=== PATIENT | male | born 1965 | race Caucasian/White ===

== ENCOUNTER 2022-08-08 14:30 | Emergency (ER) | payer MEDICAID ==
[~2022-08-08] VITALS: Ht 170.2 cm; Wt 77.1 kg
[2022-08-08 15:00] VITALS: BP 143/76
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
[2022-08-08] MEDS ORDERED: IBUPROFEN 600 MG TAB PO ONE (16:00)
[2022-08-08] MEDS ORDERED: BACITRACIN OINT 500 UNITS/GM PKT TP ONE ×2 (16:00→16:05)
[2022-08-08] MEDS ORDERED: IBUP-2213 PO (16:08)
[2022-08-08] MEDS ORDERED: ACET-10509 PO (16:08)
[2022-08-08 16:33] VITALS: BP 143/76
--- NOTE | 2022-08-08 16:33 | NUR ---
Patient discharged with v/s stable. Written and verbal after care instructions given and explained. Patient alert, oriented and verbalized understanding of instructions. Ambulatory with CRUTCHES. All questions addressed prior to discharge. ID band removed. Patient advised to follow up with PMD. Rx of IBUPROFEN, ACETAMINOPHEN given. Patient educated on indication of medication including possible reaction and side effects. Opportunity to ask questions provided and answered.
--- NOTE | 2022-08-08 16:34 | NUR ---
The patient's care was reviewed and supervised by Kayy Diaz, RN, RN.
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
== END 2022-08-08 16:33 | disposition home or self-care (01) ==
LOC: MED 14:30
DX: S92.425A Nondisplaced fracture of distal phalanx of left great toe, initial encounter for closed fracture (principal); Z79.899 Other long term (current) drug therapy; Z79.1 Long term (current) use of non-steroidal anti-inflammatories (NSAID); W20.8XXA Other cause of strike by thrown, projected or falling object, initial encounter; Y93.89 Activity, other specified; Y92.89 Other specified places as the place of occurrence of the external cause; Y99.8 Other external cause status
CPT/HCPCS: 73660; 99283

== ENCOUNTER 2023-10-10 18:08 | Emergency (ER) | payer SELFPAY ==
[~2023-10-10] VITALS: Ht 170.2 cm; Wt 80.5 kg
[~2023-10-10 18:08] MED LIST: ACET-10509 PO; IBUP-2213 PO
[2023-10-10 18:17] VITALS: BP 117/47; PULSE 77; RESP 16; TEMP 97.7; O2SAT 99
[2023-10-10] MEDS: KETOROLAC 30 MG/ML VIAL IM ONE (19:47)
[2023-10-10] MEDS: predniSONE 20 MG TAB PO ONE (19:49)
[2023-10-10 20:07] VITALS: BP 120/50; PULSE 72; RESP 18; TEMP 98.1; O2SAT 99
[2023-10-10 20:26] LABS: BASOPHILS # (AUTO) 0.1 K/uL (0.00-0.22); BASOPHILS % (AUTO) 0.7 % (0.0-2.0); EOSINOPHILS # (AUTO) 0.2 K/uL (0-0.4); EOSINOPHILS % (AUTO) 1.4 % (0.0-4.0); HEMATOCRIT 45.3 % (36-52); HEMOGLOBIN 16.2 g/dL (12.0-18.0); LYMPHOCYTES % (AUTO) 35.6 % (20.5-51.1); MEAN CORPUSCULAR HEMOGLOBIN 33 pg (27-31); MEAN CORPUSCULAR HGB CONC 36 g/dL (33-37); MEAN CORPUSCULAR VOLUME 91.9 fL (80-94); MONOCYTES # (AUTO) 0.9 K/uL (0.8-1.0); MONOCYTES % (AUTO) 6.5 % (1.7-9.3); NEUTROPHILS # (AUTO) 7.8 K/uL (1.8-7.7); NEUTROPHILS % (AUTO) 55.8 % (42.2-75.2); PLATELET COUNT (AUTO) 372 K/uL (140-450); RED BLOOD CELL COUNT(AUTO) 4.93 MIL/uL (4.20-6.10); RED CELL DISTRIBUTION WIDTH 13.6 % (11.6-13.7)
[2023-10-10 20:45] LABS: ANION GAP 13.4 (8-16); CALCIUM 8.3 mg/dL (8.5-10.1); CREATININE 1.3 mg/dL (0.6-1.3); POTASSIUM 4.4 mmol/L (3.5-5.1)
[2023-10-10 20:47] LABS: ALBUMIN 3.7 g/dL (3.4-5.0); TOTAL BILIRUBIN 0.5 mg/dL (0.0-1.0); TOTAL PROTEIN, SERUM 7.4 g/dL (6.4-8.2)
[2023-10-10] MEDS ORDERED: PRED20TA5 PO (21:07)
[2023-10-10] MEDS ORDERED: NAPR-337 PO (21:07)
== END 2023-10-10 21:15 | disposition home or self-care (01) ==
LOC: MED 18:08
DX: M25.542 Pain in joints of left hand (principal); M25.541 Pain in joints of right hand; M10.9 Gout, unspecified; Z79.899 Other long term (current) drug therapy
CPT/HCPCS: 36415; 73130; 80048; 80076; 85025; 96372; 99284; J1885; J7512